=== PATIENT | female | born 1960 | race Caucasian/White ===

== ENCOUNTER 2017-12-31 14:49 | Outpatient (CLI) | payer OTHER ==
[~2017-12-31 14:49] MED LIST: CRESTOR20 MG
== END 2017-12-31 15:02 | disposition home or self-care (01) ==
LOC: MAMO-SONO 14:49
DX: Z12.31 Encounter for screening mammogram for malignant neoplasm of breast (principal); N64.89 Other specified disorders of breast; E04.1 Nontoxic single thyroid nodule

== ENCOUNTER 2018-01-01 08:37 | Outpatient (CLI) | payer OTHER | END 2018-01-01 08:52 | disposition home or self-care (01) | LOC: SONOGRAMA 08:37 | DX: R10.13 Epigastric pain (principal) ==

== ENCOUNTER 2018-11-01 07:39 | Emergency (ER) | payer OTHER ==
[~2018-11-01] VITALS: Ht 162.6 cm; Wt 65.8 kg
== END 2018-11-01 21:48 | disposition home or self-care (01) ==
LOC: ER 07:39
DX: K52.9 Noninfective gastroenteritis and colitis, unspecified (principal)

== ENCOUNTER 2018-11-04 11:30 | Inpatient (IN) | payer OTHER ==
[~2018-11-04] VITALS: Ht 162.6 cm; Wt 65.8 kg
--- NOTE | 2018-11-04 11:54 | NUR ---
PACIENTE ALERTA Y ORIENTADA X3. REFIERE VENIR POR VOMITOS DESDE EL VIERNES. PACIENTE REFIERE 6 EPISODIOS DE VOMITOS HOY. SE UBICA EN EL AREA DE OBSERVACION PARA EVALUACION MEDICA.
--- NOTE | 2018-11-04 13:03 | NUR ---
SE ORIENTA A PT SOBRE ORDENES MEDICAS, REFIERE ENTENDER. SE LE COLECTAN MUESTRAS DE LABORATORIO BAJO MEDIDAS ASEPTICAS Y SE CANALIZA EN MANO RT, AREA DE VENOPUNCION XIOMARA DE EDEMA Y ERITEMA. SE LE ADMINISTRAN MEDICAMENTOS RAMA PESCRITOS, AL MOMENTO NO PRESENTA REACCION ADVERSA.
--- NOTE | 2018-11-04 13:05 | NUR ---
SE COMIENZA 0.9NSS 250ML.
[2018-11-07] MEDS ORDERED: LIPITOR40 MG PO (10:28)
[2018-11-07] MEDS ORDERED: LOSARTAN-HCTZ1 EAC2 PO (10:28)
== END 2018-11-07 13:00 | disposition home or self-care (01) | DRG 392 ==
LOC: ER 11:30 → MEDJ 21:23
PROVIDERS: ADMIT Internal Medicine
PROC: 0DB78ZX Excision of Stomach, Pylorus, Via Natural or Artificial Opening Endoscopic, Diagnostic (ICD-10-PCS; principal; 2018-11-07)
PROC: 0DB98ZX Excision of Duodenum, Via Natural or Artificial Opening Endoscopic, Diagnostic (ICD-10-PCS; 2018-11-07)
DX: K29.60 Other gastritis without bleeding (principal); K52.89 Other specified noninfective gastroenteritis and colitis

== ENCOUNTER 2018-11-08 13:50 | Emergency (ER) | payer OTHER ==
[~2018-11-08] VITALS: Ht 162.6 cm; Wt 65.8 kg
[~2018-11-08 13:50] MED LIST changes: +LIPITOR40 MG PO; +LOSARTAN-HCTZ1 EAC2 PO
== END 2018-11-08 19:38 | disposition home or self-care (01) ==
LOC: ER 13:50
DX: R42 Dizziness and giddiness (principal)

== ENCOUNTER → 2018-11-13 | Outpatient (CLI) | payer OTHER | END | disposition home or self-care (01) | LOC: NUCLEAR 13:30 | DX: G45.9 Transient cerebral ischemic attack, unspecified (principal) ==

== ENCOUNTER 2019-06-23 14:11 | Outpatient (CLI) | payer OTHER | END 2019-06-23 14:14 | disposition home or self-care (01) | LOC: MAMO-SONO 14:11 | DX: Z12.31 Encounter for screening mammogram for malignant neoplasm of breast (principal); Z87.898 Personal history of other specified conditions ==

== ENCOUNTER 2019-09-06 10:47 | Emergency (ER) | payer OTHER ==
[~2019-09-06] VITALS: Ht 165.1 cm; Wt 63.5 kg
== END 2019-09-06 23:13 | disposition home or self-care (01) ==
LOC: ER 10:47
DX: K29.00 Acute gastritis without bleeding (principal)

== ENCOUNTER 2020-02-09 07:53 | Outpatient (CLI) | payer OTHER | END 2020-02-09 08:02 | disposition home or self-care (01) | LOC: SONOGRAMA 07:53 | PROVIDERS: ATTEND Internal Medicine | DX: E04.8 Other specified nontoxic goiter (principal) ==

== ENCOUNTER 2020-05-14 07:11 | Outpatient (CLI) | payer OTHER | END 2020-05-14 07:30 | disposition home or self-care (01) | LOC: LAB 07:11 | PROVIDERS: ATTEND Internal Medicine Adolescent Medicine | DX: D64.89 Other specified anemias (principal); E78.49 Other hyperlipidemia; R74.0 Nonspecific elevation of levels of transaminase and lactic acid dehydrogenase [LDH]; N28.89 Other specified disorders of kidney and ureter; N39.0 Urinary tract infection, site not specified; E03.8 Other specified hypothyroidism; R73.09 Other abnormal glucose ==

== ENCOUNTER 2020-11-02 09:41 | Outpatient (CLI) | payer OTHER ==
[2020-11-05] MEDS ORDERED: PROTONIX20 MG (16:35)
== END 2020-11-02 09:52 | disposition home or self-care (01) ==
LOC: MAMO-SONO 09:41
DX: N64.4 Mastodynia (principal)

== ENCOUNTER → 2020-11-05 | Emergency (ER) | payer OTHER ==
[~2020-11-05] VITALS: Ht 162.6 cm; Wt 64.9 kg
[~2020-11-05] MED LIST changes: +PROTONIX20 MG
== END | disposition left against medical advice (07) ==
LOC: ER 16:21
DX: R11.2 Nausea with vomiting, unspecified (principal); N39.0 Urinary tract infection, site not specified; Z20.822 Contact with and (suspected) exposure to COVID-19

== ENCOUNTER 2020-11-07 22:08 | Emergency (ER) | payer OTHER ==
[~2020-11-07] VITALS: Ht 162.6 cm; Wt 64.9 kg
== END 2020-11-08 08:59 | disposition home or self-care (01) ==
LOC: ER 22:08
DX: R11.2 Nausea with vomiting, unspecified (principal)

== ENCOUNTER → 2020-12-09 07:24 | Outpatient (CLI) | payer OTHER | END | disposition home or self-care (01) | LOC: LAB 07:24 | PROVIDERS: ATTEND Radiology Diagnostic Radiology | DX: Z03.818 Encounter for observation for suspected exposure to other biological agents ruled out (principal) ==

== ENCOUNTER 2021-05-17 08:25 | Outpatient (CLI) | payer OTHER | END 2021-05-17 08:37 | disposition home or self-care (01) | LOC: SONOGRAMA 08:25 | PROVIDERS: ATTEND Internal Medicine Gastroenterology | DX: E03.8 Other specified hypothyroidism (principal); R10.84 Generalized abdominal pain; R16.0 Hepatomegaly, not elsewhere classified ==

== ENCOUNTER → 2021-06-07 06:44 | Outpatient (CLI) | payer OTHER | END | disposition home or self-care (01) | LOC: LAB 06:44 | DX: R00.2 Palpitations (principal); E11.9 Type 2 diabetes mellitus without complications; E78.2 Mixed hyperlipidemia ==

== ENCOUNTER 2021-12-06 07:49 | Outpatient (CLI) | payer OTHER | END 2021-12-06 08:00 | disposition home or self-care (01) | LOC: LAB 07:49 | PROVIDERS: ATTEND Internal Medicine Cardiovascular Disease | DX: R00.2 Palpitations (principal); I11.9 Hypertensive heart disease without heart failure; E11.9 Type 2 diabetes mellitus without complications; E78.2 Mixed hyperlipidemia ==

== ENCOUNTER 2022-05-01 14:10 | Outpatient (CLI) | payer OTHER | END 2022-05-01 14:12 | disposition home or self-care (01) | LOC: RAD 14:10 | PROVIDERS: ATTEND Physical Medicine & Rehabilitation | DX: M25.521 Pain in right elbow (principal) ==

== ENCOUNTER 2022-11-06 10:53 | Inpatient (IN) | payer OTHER ==
[~2022-11-06] VITALS: Ht 162.6 cm; Wt 64.0 kg
[2022-11-07] MEDS ORDERED: ATORVASTATIN CA40 MG (09:33)
[2022-11-07] MEDS ORDERED: IRBESARTAN150 MG (09:34)
== END 2022-11-11 10:30 | disposition left against medical advice (07) | DRG 280 ==
LOC: ER 10:53 → MEDI 18:10
PROVIDERS: ADMIT Internal Medicine; ATTEND Internal Medicine
PROC: B24BZZZ Ultrasonography of Heart with Aorta (ICD-10-PCS; principal; 2022-11-06)
PROC: 4A12X4Z Monitoring of Cardiac Electrical Activity, External Approach (ICD-10-PCS; 2022-11-07)
PROC: CF241ZZ Tomographic (Tomo) Nuclear Medicine Imaging of Gallbladder using Technetium 99m (Tc-99m) (ICD-10-PCS; 2022-11-09)
DX: I21.A1 Myocardial infarction type 2 (principal); A48.0 Gas gangrene; E78.5 Hyperlipidemia, unspecified; K21.9 Gastro-esophageal reflux disease without esophagitis; F12.20 Cannabis dependence, uncomplicated; I11.9 Hypertensive heart disease without heart failure; Z20.822 Contact with and (suspected) exposure to COVID-19

== ENCOUNTER 2022-12-07 11:03 | Outpatient (CLI) | payer OTHER ==
[~2022-12-07 11:03] MED LIST changes: +ATORVASTATIN CA40 MG; +IRBESARTAN150 MG
== END 2022-12-07 11:08 | disposition home or self-care (01) ==
LOC: TOM 11:03
PROVIDERS: ATTEND Internal Medicine Cardiovascular Disease
DX: I63.9 Cerebral infarction, unspecified (principal)

== ENCOUNTER 2022-12-22 07:00 | Outpatient (CLI) | payer OTHER | END 2022-12-22 07:20 | disposition home or self-care (01) | LOC: MAMO-SONO 07:00 | DX: Z12.31 Encounter for screening mammogram for malignant neoplasm of breast (principal) ==

== ENCOUNTER 2025-01-21 07:59 | Outpatient (CLI) | payer OTHER | END 2025-01-21 08:02 | disposition home or self-care (01) | LOC: MAMO-SONO 07:59 | PROVIDERS: ATTEND Obstetrics & Gynecology | DX: N64.4 Mastodynia (principal); Z12.31 Encounter for screening mammogram for malignant neoplasm of breast ==